=== PATIENT | male | born 1985 | race Caucasian/White ===

== ENCOUNTER 2017-07-05 09:27 | Emergency (ER) | payer BC ==
[~2017-07-05] VITALS: Ht 177.8 cm; Wt 83.9 kg
--- OUTSIDE RECORDS SUMMARY | 2017-07-05 09:29 | XMS REPORT | Clinical Summary ---
Author Author [facility] Organization [facility] Address Unknown Phone Unavailable Care Team Providers Care Automobile Club Travel Counselor Name Role Phone Ricardo Sanchez MD PCP Allergies No Known Allergies Current Medications Prescription Sig. Disp. Refills Start End Date Status Date amphetamine-dextroampheta Take 20 mg by mouth. Active mine XR (ADDERALL XR) 20 MG 24 hr capsule amphetamine-dextroampheta TAKE ONE (1) CAPSULE(S) 0 03/05/20 Active mine XR (ADDERALL XR) 30 BY MOUTH EVERY MORNING. 17 MG 24 hr capsule SULFAMETHOXAZOLE/TRIMETHO Take by mouth. Active PRIM (BACTRIM ORAL) sildenafil (VIAGRA) 50 MG Take 1 tablet (50 mg 10 tablet 0 03/30/20 Active tablet total) by mouth daily as 17 needed for erectile dysfunction. 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 Pulse 97 03/30/2017 9:38 AM GEAR TOOTH LAPPING MACHINE OPERATOR Temperature - - Respiratory Rate - - Oxygen Saturation - - Inhaled Oxygen - - Concentration Weight 87.5 kg (193 lb) 03/30/2017 9:38 AM GEAR 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
[2017-07-05] MEDS ORDERED: CEFTRIAXONE SOD 1 GM VIAL IM ONE (09:45)
[2017-07-05] MEDS ORDERED: AZITHROMYCIN 250 MG TAB PO ONE (09:45)
[2017-07-05 10:35] VITALS: BP 117/79
== END 2017-07-05 10:49 | disposition home or self-care (01) ==
LOC: ER 09:27
DX: R50.9 Fever, unspecified (principal); R05 Cough; J02.9 Acute pharyngitis, unspecified
CPT/HCPCS: 96372; 99283; J0696

== ENCOUNTER 2017-07-12 09:11 | Inpatient (IN) | payer BC ==
[~2017-07-12] VITALS: Ht 177.8 cm; Wt 87.6 kg
--- OUTSIDE RECORDS SUMMARY | 2017-07-12 09:14 | XMS REPORT | Clinical Summary ---
Author Author [facility] Address Unknown Phone Unavailable Care Team Providers Care Stockbroking Dealer Name Role Phone Ricardo Sanchez MD PCP [...] MD Drug-induced erectile dysfunction (Primary Dx) after 07/11/2016 Family History Relation Name Status Comments Father Alive Mother Alive Social History Tobacco Use Types Packs/Day Years Used Date Never Smoker Smokeless Tobacco: Never Used Alcohol Use Drinks/Week oz/Week Comments Yes Sex Assigned at Date Recorded Not on file Last Filed Vital Signs Vital Sign Reading Time Taken Blood Pressure 142/87 03/30/2017 9:38 AM DRYER FEEDER Pulse 97 03/30/2017 9:38 AM DRYER FEEDER Temperature - - Respiratory Rate - - Oxygen Saturation - - Inhaled Oxygen - - Concentration Weight 87.5 kg (193 lb) 03/30/2017 9:38 AM DRYER FEEDER Height 175.3 cm (5' 9") 03/30/2017 9:38 AM DRYER FEEDER Body Mass Index 28.5 03/30/2017 9:38 AM DRYER FEEDER Plan of Treatment Health Maintenance Due Date Last Done Comments INFLUENZA VACCINE 11/28/2016 Results Not on fileafter 07/11/2016 Insurance Payer Benefit Subscriber ID Type Phone Address Plan / Group BCBS BCBS xxxxxxxxxxxx PPO MEREDITH PPO/GIORGIO REDDY PPO
--- OUTSIDE RECORDS SUMMARY | 2017-07-12 09:14 | XMS REPORT | Continuity of Care Document ---
Author Author [facility] Organization [facility] Address [address] [place] [address] Phone Unavailable Care Team Providers Care Roving Inspector Name Role Phone ANIYAH MYERS DO PCP Insurance Providers Guarantor Saleem Dejesus Address [address] [place] [address] [facility] Policy Number [id number] Subscriber's Name Saleem Dejesus Relationship 18 Self / Same As Patient Group Number [id number] Group Name [facility] Effective Date 17 Advance Directives Directive Response Recorded Date/Time Does the patient have an advance directive? No 10/11/12 1:54pm If yes, [facility]? No 10/11/12 1:54pm If not on file with [facility] will patient provide a copy? No 10/11/12 1:54pm Do you have a Directive to Physician? No 07/05/17 10:00am Do you have a Medical Power of Surgical Assistant Certified? No 07/05/17 10:00am Do you have an out of hospital Do Not Resuscitate Order? No 07/05/17 10:00am Do you have any special needs we should be aware of? No 07/05/17 10:00am Do you have a support person here with you today? No 07/05/17 10:00am Did patient receive Notice of Privacy Practices? Yes 07/05/17 10:00am Did patient receive patient rights and responsibilities? Yes 07/05/17 10:00am Problems No problem information available. Medications No medication information available. Social History No social history information available. Hospital Discharge Instructions No hospital discharge instruction information available. Plan of Care Discharge Date 07/05/17 10:49am Disposition HOME, SELF-CARE Condition at Discharge Stable Instructions/Education Provided Fever - Adult Viral Syndrome - Adult Forms Provided Work/School Excuse Prescriptions See Medication Section Referrals ANIYAH MYERS DO Address: [address] [place] [id number] Additional Instructions/Education Your diagnosis today is Acute Viral Pharyngitis and Acute Fever. Start Zithromax tomorrow 07/06/17, start taking Tamiflu today. Take medications as instructed. Alternate Tylenol or Motrin for fever, temperature greater than 100.4 degress orally. Take according to label instructions. Drink plenty of fluids. Do not smoke. No alcohol. Off work 2 days. Follow up with your doctor in 2 days. Call for next available appointment. Return to ER for any worsening symptoms or concerns. Functional Status No functional status information available. Allergies, Adverse Reactions, Alerts No known allergies. Immunizations No immunization information available. Vital Signs Acute Vital Signs Vital Response Date/Time Height 5 ft 10 in 07/05/2017 9:30am Weight 185 lb 07/05/2017 9:30am Body Mass Index 26.5 kg/m^2 07/05/2017 9:30am Results No relevant diagnostic test, laboratory data and/or discharge summary information available. Procedures No procedure information available. Encounters Encounter Location Arrival/Admit Date Discharge/Depart Date Attending Provider Departed Emergency Room [facility] 07/05/17 9:27am 10:49am CAPRICE WAGNER
[2017-07-12] MEDS ORDERED: SODIUM CHLORIDE 0.9% 1000ML 1,000 ML IV STA ×2 (09:20)
[2017-07-12] MEDS ORDERED: ONDANSETRON HCL INJ 2 MG/ML VIAL IV STA (09:20)
[2017-07-12] MEDS ORDERED: AZITHROMYCIN 500MG/NS 250 ML 250 ML IV STA (09:20)
[2017-07-12] MEDS ORDERED: MORPHINE SULFATE 2 MG/ML SYR IV STA (09:20)
[2017-07-12] MEDS ORDERED: CEFTRIAXONE SOD 1 GM VIAL IM ONE (09:30)
[2017-07-12 09:40] LABS: BASOPHILS # (AUTO) 0.1 (0.0-0.1); BASOPHILS % 0.5 % (0.0-1.0); EOSINOPHILS # (AUTO) 0.1 (0.0-0.4); EOSINOPHILS % 0.8 % (0.0-6.0); HEMATOCRIT 35.9 % (38.2-49.6); HEMOGLOBIN 12.2 g/dL (14.0-18.0); LYMPHOCYTES # (AUTO) 1.9 (1.0-3.2); LYMPHOCYTES % 11.4 % (18.0-39.1); MEAN CORPUSCULAR HEMOGLOBIN 27.9 pg (28-32); MEAN CORPUSCULAR VOLUME 82.2 fL (81-99); MONOCYTES # (AUTO) 1.3 (0.2-0.8); MONOCYTES % 8.2 % (4.4-11.3); NEUTROPHILS # (AUTO) 12.7 (2.1-6.9); NEUTROPHILS % 78.3 % (38.7-80.0); PLATELET COUNT 278 x10e3/uL (140-360); RED BLOOD COUNT 4.37 x10e6/uL (4.3-5.7); RED CELL DISTRIBUTION WIDTH 13.6 % (11.7-14.4)
[2017-07-12 09:49] LABS: INR 1.33; PROTHROMBIN TIME 15.5 seconds (11.9-14.5)
[2017-07-12 09:50] LABS: PARTIAL THROMBOPLASTIN TIME 31.8 seconds (23.8-35.5)
[2017-07-12 10:00] LABS: ALANINE AMINOTRANSFERASE 133 IU/L (0-55); ALBUMIN 3.5 g/dL (3.5-5.0); ALBUMIN/GLOBULIN RATIO 0.9 (0.8-2.0); ALKALINE PHOSPHATASE 166 IU/L (40-150); ANION GAP 12.2 mmol/L (8-16); BLOOD UREA NITROGEN 7 mg/dL (7-26); BUN/CREATININE RATIO 9 (6-25); CALCIUM 9.5 mg/dL (8.4-10.2); CARBON DIOXIDE 32 mmol/L (22-29); CHLORIDE 95 mmol/L (98-107); CREATINE KINASE 119 IU/L (30-200); EST GLOMERULAR FILTRATION RATE > 60 ML/MIN (60-); GLUCOSE 139 mg/dL (74-118); LIPASE 11 U/L (8-78); MAGNESIUM 1.6 MG/DL (1.3-2.1); POTASSIUM 4.2 mmol/L (3.5-5.1); SODIUM 135 mmol/L (136-145)
--- NOTE | 2017-07-12 10:43 | Diagnostic Imaging Report ---
PROCEDURE:CHEST SINGLE (PORTABLE) TECHNIQUE:Portable AP chest INDICATION:Chest pain; flu COMPARISON:None. FINDINGS: Low lung volume. Lungs otherwise clear. No pleural effusions. Normal cardiac mediastinal silhouette for technique. Index skeleton. Study limited by portable technique and low inspiration. CONCLUSION: Limited study without acute abnormality. Dictated by: Yuri Forde M.D. on 07/12/2017 at 10:42 Electronically approved by: Yuri Forde M.D. on 07/12/2017 at 10:42
[2017-07-12 10:46] LABS: BILIRUBIN,URINE NEGATIVE (NEGATIVE); KETONES,URINE NEGATIVE (NEGATIVE); LEUKOCYTE ESTERASE ,URINE NEGATIVE (NEGATIVE); NITRITE,URINE NEGATIVE (NEGATIVE); PROTEIN,URINE DIPSTICK NEGATIVE (NEGATIVE); URINE UROBILINOGEN 0.2 mg/dL (0.2 - 1)
[2017-07-12 10:53] LABS: CLARITY,URINE CLEAR (CLEAR); COLOR,URINE YELLOW (YELLOW)
[2017-07-12] MEDS: CEFTRIAXONE SOD 1 GM VIAL IV SCH ×2 (10:59→23:25)
[2017-07-12 11:00] LABS: BACTERIA,URINE FEW /HPF; EPITHELIAL CELLS,URINE FEW /LPF; RBC,URINE 0-5 /HPF (0-5); WBC,URINE (MAN) 0-5 /HPF (0-5)
[2017-07-12] MEDS ORDERED: SODIUM CHLORIDE 0.9% 1000ML 1,000 ML IV SCH (11:00)
[2017-07-12] MEDS ORDERED: ALBUTEROL SULF 0.083% NEB SOLN 3 ML NEB NEB SCH (11:00)
[2017-07-12] MEDS ORDERED: ONDANSETRON HCL INJ 2 MG/ML VIAL IV PRN (11:00)
[2017-07-12] MEDS ORDERED: ASPIRIN 81 MG CHEW TAB PO ONE (11:00)
[2017-07-12] MEDS ORDERED: ACETAMINOPHEN 325 MG TAB PO PRN (11:00)
[2017-07-12] MEDS ORDERED: MORPHINE SULFATE 2 MG/ML SYR IV PRN (11:00)
[2017-07-12] MEDS ORDERED: AZITHROMYCIN 500MG/SOD CHL 0.9% 250ML BAG IV SCH (11:00)
[2017-07-12] MEDS ORDERED: ACETAMINOPHEN 325 MG TAB PO ONE (11:45)
[2017-07-12] MEDS ORDERED: IPRATROPIUM BROMIDE 0.02% 2.5 ML NEB NEB SCH (12:00)
[2017-07-12] MEDS ORDERED: AZITHROMYCIN 500MG/NS 250 ML 250 ML IV SCH (12:00)
--- OUTSIDE RECORDS SUMMARY | 2017-07-12 12:06 | XMS REPORT | Clinical Summary ---
Author Author [facility] Address Unknown Phone Unavailable Care Team Providers Care Senior Librarian Name Role Phone Ricardo Sanchez MD PCP [...] Taken Blood Pressure 142/87 03/30/2017 9:38 AM COMMODITY SUPERVISOR Pulse 97 03/30/2017 9:38 AM COMMODITY SUPERVISOR Temperature - - Respiratory Rate - - Oxygen Saturation - - Inhaled Oxygen - - Concentration Weight 87.5 kg (193 lb) 03/30/2017 9:38 AM COMMODITY SUPERVISOR Height 175.3 cm (5' 9") 03/30/2017 9:38 AM COMMODITY SUPERVISOR Body Mass Index 28.5 03/30/2017 9:38 AM COMMODITY SUPERVISOR Plan of Treatment Health Maintenance Due Date Last Done Comments INFLUENZA VACCINE 11/28/2016 Results Not on fileafter 07/11/2016 Insurance Payer Benefit Subscriber ID Type Phone Address Plan / Group BCBS BCBS xxxxxxxxxxxx PPO MEREDITH PPO/GIORGIO REDDY PPO
--- OUTSIDE RECORDS SUMMARY | 2017-07-12 12:06 | XMS REPORT ---
Author [facility] Address Unknown Phone Unavailable Care Team Providers Care Speech/Language Therapist Name Role Phone CAPRICE WAGNER Unavailable Unavailable Problems This patient has no known problems. Allergies, Adverse Reactions, Alerts This patient has no known allergies or adverse reactions. Medications This patient has no known medications. Results Test Description Test Time Test Comments Text Results Atomic Results Result Comments CHEST SINGLE (PORTABLE) [place] [address] Patient Name: SALEEM DEJESUS MR #: [id number] : 1985 Age/Sex: 31/M Req #: [id number] Adm Physician: Ordered by: CAPRICE WAGNER MD, MD Report #: [id number] Location: ER Room/Bed: Procedure: [id number] DX/CHEST SINGLE (PORTABLE) Exam Date: 07/12/17 Exam Time: 1030 REPORT STATUS: Signed PROCEDURE: CHEST SINGLE (PORTABLE) TECHNIQUE: Portable AP chest INDICATION: Chest pain; flu COMPARISON: None. FINDINGS: Low lung volume. Lungs otherwise clear. No pleural effusions. Normal cardiac mediastinal silhouette for technique. Index skeleton. Study limited by portable technique and low inspiration. CONCLUSION: Limited study without acute abnormality. Dictated by: Jeanine Forde M.D. on 07/12/2017 at 10:42 Electronically approved by: Jeanine Forde M.D. on 07/12/2017 at 10: 42 Dictated By: JEANINE FORDE MD [id number] Transcribed By: PATRICIO on 07/12/17 1042 COPY TO: CAPRICE WAGNER
--- NOTE | 2017-07-12 12:32 | Diagnostic Imaging Report ---
PROCEDURE: CT scan of the chest WITH intravenous contrast, using PE protocol. TECHNIQUE: The chest was scanned utilizing a multidetector helical scanner from the lung apex through the level of the adrenal glands after the IV administration of 60 cc of Isovue 370. Coronal and sagittal multiplanar reformations were obtained. DLP: 457.28 mGy*cm COMPARISON: None. INDICATIONS: Chest tightness and fever FINDINGS: Lines/tubes: None. Lungs and Airways: No evidence of pulmonary embolus to the subsegmental level. Groundglass opacities in both lower lobes likely secondary to atelectasis versus edema. Pleura: Small bilateral pleural effusions. Heart and mediastinum: There is a small-moderate pericardial effusion. The density of the effusion is slightly higher than water suggesting blood. The thyroid gland is normal. No significant mediastinal, hilar or axillary lymphadenopathy is seen. The heart is within normal limits. Soft tissues: Normal. Abdomen: Limited contrast-enhanced views of the upper abdomen show no abnormality within the visualized liver, spleen, pancreas, or kidneys. Small splenule adjacent to the medial aspect of the spleen. The adrenal glands are normal. Bones: The visualized bony thorax is within normal limits. IMPRESSION: 1. No evidence of pulmonary emboli. 2. Small-moderate pericardial effusion. 3. Bibasilar groundglass opacities. 4. Small bilateral pleural effusions. Alvarado Bauer D.O. Dictated by: Alvarado Bauer D.O. on 07/12/2017 at 12:31 Electronically approved by: Alvarado Bauer D.O. on 07/12/2017 at 12:31
[2017-07-12 13:20] VITALS: BP 116/63
[2017-07-12] MEDS ORDERED: SODIUM CHLORIDE 0.9% 50ML 50 ML ONE ×2 (13:51→23:18)
[2017-07-12] MEDS ORDERED: IOPAMIDOL 370 MG/ML 200 ML INFUS..BTL INJ ONE (13:51)
[2017-07-12] MEDS: SODIUM CHLORIDE 0.9% 1000ML 1,000 ML IV SCH ×2 (13:59→18:46)
[2017-07-12] MEDS: FAMOTIDINE 20 MG/2 ML VIAL IV SCH (16:17)
[2017-07-12] MEDS: INDOMETHACIN 25 MG CAP PO SCH ×2 (16:17→21:46)
[2017-07-12 16:59] VITALS: BP 115/73
--- NOTE | 2017-07-12 18:45 | Consultation ---
DATE OF CONSULTATION: July 12, 2017 REQUESTING PHYSICIAN: Dr. Shin Canela. REASON FOR CONSULTATION: Chest pain. HISTORY OF PRESENT ILLNESS: This is a 31-year-old man without significant past medical history who presents with complaints of chest pain and body aches. The patient reports that he began having body aches and chest pain last Sunday. This was associated with fevers. However, he denied any chills or sick contacts. The chest pain was described as a pressure 6-7/10 in severity. He saw his primary care physician the following Sunday because he then proceeded to develop generalized pain and shortness of breath. He was given Tamiflu and antibiotics. He felt slightly better with these therapies. However, yesterday he began to have body aches, fevers and chest discomfort again. He reports the chest discomfort is worse with inspiration and with laying down. The pain has been constant since onset. REVIEW OF SYSTEMS: Negative except as per HPI. PAST MEDICAL HISTORY: Denies. PAST SURGICAL HISTORY: None. ALLERGIES: NO KNOWN DRUG ALLERGIES. MEDICATIONS: Please see EMR. SOCIAL HISTORY: Denies tobacco or illicit drugs. He drinks alcohol occasionally. FAMILY HISTORY: Noncontributory. PHYSICAL EXAMINATION VITAL SIGNS: Temperature 98 degrees, pulse 109, respiratory rate 18, blood pressure 116/63, oxygen saturation 97% on room air. GENERAL: A well-nourished, well-developed man in no acute distress. HEENT: Normocephalic, atraumatic. Pupils are equal. No scleral icterus. NECK: Supple. No thyromegaly or cervical lymphadenopathy. No carotid bruits. LUNGS: Clear to auscultation bilaterally. No wheezes or crackles. CARDIOVASCULAR: Tachycardiac but regular, no murmur. Normal S1 and S2. ABDOMEN: Soft and nontender. EXTREMITIES: No edema. NEUROLOGIC: Nonfocal exam. LABORATORY DATA: WBC 16.26, hemoglobin 12.2, hematocrit 35.9, platelets 278,000, sodium 135, potassium 4.2, chloride 95, CO2 of 32. BUN 7, creatinine 0.8. Troponin 0.017. BNP 114.5. INR 1.33. CT chest no evidence of pulmonary emboli, small to moderate pericardial effusion, bibasilar ground-glass opacities, small bilateral pleural effusions. Chest x-ray: Limited study without acute abnormalities. Blood and urine cultures pending. Influenza A and B negative. IMPRESSION 1. Chest pain. 2. Generalized body aches. 3. Leukocytosis. 4. Mild to moderate pericardial effusion. 5. Tachycardia. PLAN: The patient's chest pain is unlikely to be of coronary artery etiology. Given mild to moderate pericardial effusion, suspect pericarditis. Blood and urine cultures have been sent and are pending. The patient has been started on antibiotics. Echocardiogram has been done. We will review the images. Will check CRP. Agree with indomethacin 50 mg p.o. t.i.d. Start colchicine 0.6 mg p.o. b.i.d. as well for presumed pericarditis. Trend cardiac enzymes. Antibiotics per primary service. Thank you for this consult. We will continue to follow. Job#: [id number]
[2017-07-12 19:44] LABS: CREATINE KINASE MB 1.5 ng/mL (0-5.0)
[2017-07-12 19:55] VITALS: BP 119/56
[2017-07-12] MEDS ORDERED: ASPIRIN 81 MG CHEW TAB ONE (21:44)
[2017-07-12] MEDS ORDERED: SODIUM CHLORIDE 0.9% 250ML 250 ML ONE (23:17)
[2017-07-13] VITALS: BP 119/56
[2017-07-13 00:18] VITALS: BP 118/59
[2017-07-13 03:14] LABS: CREATINE KINASE MB 1.7 ng/mL (0-5.0)
[2017-07-13] MEDS: IPRATROPIUM BROMIDE 0.02% 2.5 ML NEB NEB SCH ×3 (03:25→19:23)
[2017-07-13] MEDS: ALBUTEROL SULF 0.083% NEB SOLN 3 ML NEB NEB SCH ×6 (03:25→23:35)
[2017-07-13 04:38] VITALS: BP 124/63
[2017-07-13] MEDS: SODIUM CHLORIDE 0.9% 1000ML 1,000 ML IV SCH ×2 (04:44→14:44)
[2017-07-13 06:09] LABS: BASOPHILS # (AUTO) 0.1 (0.0-0.1); BASOPHILS % 0.5 % (0.0-1.0); EOSINOPHILS # (AUTO) 0.2 (0.0-0.4); EOSINOPHILS % 2.6 % (0.0-6.0); HEMATOCRIT 31.3 % (38.2-49.6); HEMOGLOBIN 10.3 g/dL (14.0-18.0); LYMPHOCYTES % 21.4 % (18.0-39.1); MEAN CORPUSCULAR HEMOGLOBIN 27.7 pg (28-32); MEAN CORPUSCULAR HGB CONC 32.9 g/dL (31-35); MEAN CORPUSCULAR VOLUME 84.1 fL (81-99); MONOCYTES # (AUTO) 0.8 (0.2-0.8); MONOCYTES % 8.3 % (4.4-11.3); NEUTROPHILS # (AUTO) 6.1 (2.1-6.9); NEUTROPHILS % 66.3 % (38.7-80.0); PLATELET COUNT 211 x10e3/uL (140-360); RED BLOOD COUNT 3.72 x10e6/uL (4.3-5.7); RED CELL DISTRIBUTION WIDTH 13.6 % (11.7-14.4)
--- NOTE | 2017-07-13 06:26 | Diagnostic Imaging Report ---
CHEST SINGLE (PORTABLE), 07/13/2017 5:00 AM Technique: CHEST SINGLE (PORTABLE) Comparison: 07/12/2017 Clinical history: Pneumonia Findings: See Impression Impression: Limited portable technique 1. Stable mildly enlarged cardiac silhouette. 2. Low lung volumes with small effusions and bibasilar atelectasis or consolidation. Signed by: Dr Juana Muro MD on 07/13/2017 6:23 AM
[2017-07-13 06:43] LABS: ALANINE AMINOTRANSFERASE 89 IU/L (0-55); ALBUMIN 2.8 g/dL (3.5-5.0); ALBUMIN/GLOBULIN RATIO 0.8 (0.8-2.0); ALKALINE PHOSPHATASE 133 IU/L (40-150); ANION GAP 10.3 mmol/L (8-16); BLOOD UREA NITROGEN 9 mg/dL (7-26); BUN/CREATININE RATIO 12 (6-25); CALCIUM 8.9 mg/dL (8.4-10.2); CARBON DIOXIDE 31 mmol/L (22-29); CHLORIDE 102 mmol/L (98-107); CREATININE, SERUM 0.75 mg/dL (0.72-1.25); EST GLOMERULAR FILTRATION RATE > 60 ML/MIN (60-); GLUCOSE 123 mg/dL (74-118); POTASSIUM 4.3 mmol/L (3.5-5.1); SODIUM 139 mmol/L (136-145)
[2017-07-13 07:47] VITALS: BP 109/75
[2017-07-13] MEDS: AZITHROMYCIN 500MG/NS 250 ML 250 ML IV SCH (08:54)
[2017-07-13] MEDS: FAMOTIDINE 20 MG/2 ML VIAL IV SCH (08:54)
[2017-07-13] MEDS: INDOMETHACIN 25 MG CAP PO SCH ×3 (08:55→22:35)
[2017-07-13] MEDS: COLCHICINE 0.6 MG TAB PO SCH ×2 (08:55→16:29)
[2017-07-13] MEDS: CEFTRIAXONE SOD 1 GM VIAL IV SCH ×2 (12:20→22:35)
--- NOTE | 2017-07-13 13:56 | Progress Note ---
DATE: July 13, 2017 CARDIOLOGY PROGRESS NOTE SUBJECTIVE: Patient continues to have chest pain with deep inspiration. However, he reports it is less severe now, only 2 out of 10 from 7 out of 10 in severity. He denies shortness of breath. OBJECTIVE VITAL SIGNS: Temperature 97.9 degrees, pulse 92, respiratory rate 20, blood pressure 109/75, oxygen saturation 97% on room air. GENERAL: Awake, alert, in no acute distress. LUNGS: Clear to auscultation bilaterally. No wheezes or crackles. CARDIOVASCULAR: Normal rate, regular rhythm. No murmur. Normal S1 and S2. ABDOMEN: Soft, nontender. EXTREMITIES: No edema. CARDIAC MEDICATIONS 1. Colchicine 0.6 mg p.o. b.i.d. 2. Indomethacin 50 mg p.o. t.i.d. LABS: WBC 9.18, hemoglobin 10.3, hematocrit 31.3, platelets 211. CRP 191.7. Troponin 0.006. Sodium 139, potassium 4.3, chloride 102, CO2 31, BUN 9, creatinine 0.75. TELEMETRY: Normal sinus rhythm. IMPRESSION 1. Chest pain, likely viral pericarditis. 2. Mild to moderate pericardial effusion. 3. Sinus tachycardia, resolved. RECOMMENDATIONS: Given the presence of pericardial effusion and chest pain, likely patient has viral pericarditis given presenting symptoms. Cultures are pending but without growth thus far. CRP was quite elevated. Patient's symptoms are improving with indomethacin and colchicine. We will continue. Discussed need for followup as an outpatient for taper of indomethacin, discussed activity restrictions with the patient, who agrees. Antibiotics per primary service. Thank you for this consult. We will continue to follow. Job#: [id number] EV
[2017-07-13 16:00] VITALS: BP 138/64
[2017-07-13] MEDS: FAMOTIDINE 10MG/ML 20ML VIAL IV SCH (18:38)
[2017-07-13 20:00] VITALS: BP 132/77
[2017-07-14] VITALS: BP 124/60
[2017-07-14] MEDS: SODIUM CHLORIDE 0.9% 1000ML 1,000 ML IV SCH ×3 (00:44→20:44)
[2017-07-14] MEDS: IPRATROPIUM BROMIDE 0.02% 2.5 ML NEB NEB SCH ×4 (02:35→19:20)
[2017-07-14] MEDS: ALBUTEROL SULF 0.083% NEB SOLN 3 ML NEB NEB SCH ×6 (02:35→23:40)
[2017-07-14 04:00] VITALS: BP 96/51
[2017-07-14 08:00] VITALS: BP 108/62
[2017-07-14] MEDS: INDOMETHACIN 25 MG CAP PO SCH ×3 (08:44→21:10)
[2017-07-14] MEDS: FAMOTIDINE 10MG/ML 20ML VIAL IV SCH ×2 (08:44→18:50)
[2017-07-14] MEDS: AZITHROMYCIN 500MG/NS 250 ML 250 ML IV SCH (08:44)
[2017-07-14] MEDS: COLCHICINE 0.6 MG TAB PO SCH ×2 (08:44→18:50)
[2017-07-14 09:59] LABS: BASOPHILS % 0.5 % (0.0-1.0); EOSINOPHILS # (AUTO) 0.2 (0.0-0.4); EOSINOPHILS % 1.9 % (0.0-6.0); HEMATOCRIT 29.8 % (38.2-49.6); HEMOGLOBIN 9.9 g/dL (14.0-18.0); LYMPHOCYTES # (AUTO) 1.2 (1.0-3.2); LYMPHOCYTES % 15.1 % (18.0-39.1); MEAN CORPUSCULAR HEMOGLOBIN 27.8 pg (28-32); MEAN CORPUSCULAR HGB CONC 33.2 g/dL (31-35); MEAN CORPUSCULAR VOLUME 83.7 fL (81-99); MONOCYTES # (AUTO) 0.5 (0.2-0.8); MONOCYTES % 6.1 % (4.4-11.3); NEUTROPHILS # (AUTO) 6.2 (2.1-6.9); NEUTROPHILS % 75.7 % (38.7-80.0); PLATELET COUNT 220 x10e3/uL (140-360); RED BLOOD COUNT 3.56 x10e6/uL (4.3-5.7); RED CELL DISTRIBUTION WIDTH 13.7 % (11.7-14.4)
[2017-07-14 10:18] LABS: ALANINE AMINOTRANSFERASE 75 IU/L (0-55); ALBUMIN 2.6 g/dL (3.5-5.0); ALBUMIN/GLOBULIN RATIO 0.7 (0.8-2.0); ALKALINE PHOSPHATASE 145 IU/L (40-150); ANION GAP 9.8 mmol/L (8-16); BLOOD UREA NITROGEN 10 mg/dL (7-26); BUN/CREATININE RATIO 13 (6-25); CALCIUM 9.3 mg/dL (8.4-10.2); CARBON DIOXIDE 30 mmol/L (22-29); CHLORIDE 100 mmol/L (98-107); CREATINE KINASE 54 IU/L (30-200); CREATININE, SERUM 0.75 mg/dL (0.72-1.25); EST GLOMERULAR FILTRATION RATE > 60 ML/MIN (60-); GLUCOSE 122 mg/dL (74-118); POTASSIUM 3.8 mmol/L (3.5-5.1); SODIUM 136 mmol/L (136-145)
[2017-07-14 12:00] VITALS: BP 127/61
--- NOTE | 2017-07-14 12:59 | Progress Note ---
DATE: July 14, 2017 CARDIOLOGY PROGRESS NOTE SUBJECTIVE: The patient reports his chest pain is now further on his left side. Character is still unchanged and worse with inspiration. He denies any shortness of breath. OBJECTIVE VITALS: Temperature 97.5 degrees, pulse 99, respiratory rate 18, blood pressure 108/62, oxygen saturation 95% on room air. GENERAL: Awake, alert and in no acute distress. LUNGS: Clear to auscultation bilaterally. No wheezes or crackles. CARDIOVASCULAR: Normal rate and regular rhythm. No murmur. Normal S1 and S2. No pericardial rub. ABDOMEN: Soft and nontender. EXTREMITIES: No edema. CARDIAC MEDICATIONS 1. Colchicine 0.6 mg p.o. b.i.d. 2. Indomethacin 50 mg p.o. t.i.d. LABS: WBC 8.22, hemoglobin 9.9, hematocrit 29.8, and platelets 220,000. Sodium 136, potassium 3.8, chloride 100, CO2 30, BUN 10, creatinine 0.75. Telemetry is normal sinus rhythm. IMPRESSION 1. Chest pain, likely viral pericarditis. 2. Mild to moderate pericardial effusion. 3. Sinus tachycardia, resolved. RECOMMENDATIONS: Given presence of pericardial effusion and chest pain, as well as presenting symptoms, the patient likely has viral pericarditis. Cultures are pending, but are without growth thus far. CRP was significantly elevated on admission. Continue indomethacin and colchicine. The patient will need outpatient taper of his indomethacin, as well as repeat echocardiogram. Activity restrictions. No alcohol or strenuous activity. Advice per primary service. Thank you for this consult. Will continue to follow. Job#: [id number] TIAN
[2017-07-14] MEDS: CEFTRIAXONE SOD 1 GM VIAL IV SCH ×2 (13:18→21:00)
[2017-07-14 16:00] VITALS: BP 125/65
[2017-07-14 20:00] VITALS: BP 135/70
[2017-07-15] VITALS: BP 132/72
[2017-07-15] MEDS: ALBUTEROL SULF 0.083% NEB SOLN 3 ML NEB NEB SCH ×2 (03:20→07:13)
[2017-07-15] MEDS: IPRATROPIUM BROMIDE 0.02% 2.5 ML NEB NEB SCH ×2 (03:20→07:13)
[2017-07-15 04:00] VITALS: BP 109/55
[2017-07-15] MEDS: SODIUM CHLORIDE 0.9% 1000ML 1,000 ML IV SCH (06:44)
[2017-07-15] MEDS: FAMOTIDINE 10MG/ML 20ML VIAL IV SCH (08:36)
[2017-07-15] MEDS: COLCHICINE 0.6 MG TAB PO SCH (08:36)
[2017-07-15] MEDS: INDOMETHACIN 25 MG CAP PO SCH (08:36)
[2017-07-15] MEDS: AZITHROMYCIN 500MG/NS 250 ML 250 ML IV SCH (08:36)
[2017-07-15 10:43] VITALS: BP 124/67
[2017-07-15] MEDS: CEFTRIAXONE SOD 1 GM VIAL IV SCH (11:13)
--- NOTE | 2017-07-15 12:35 | Progress Note ---
DATE: July 15, 2017 CARDIOLOGY PROGRESS NOTE SUBJECTIVE: The patient denies shortness of breath. His chest pain has resolved. OBJECTIVE VITALS: Temperature 97 degrees, pulse 125, respiratory rate 25, blood pressure 124/67, oxygen saturation 97% on room air. GENERAL: Awake, alert and in no acute distress. LUNGS: Clear to auscultation bilaterally. No wheezes or crackles. CARDIOVASCULAR: Normal rate. Regular rhythm. No murmur. Normal S1 and S2. No pericardial rub. ABDOMEN: Soft and nontender. EXTREMITIES: No edema. CARDIAC MEDICATIONS 1. Colchicine 0.6 mg p.o. b.i.d. 2. Indomethacin 50 mg p.o. t.i.d. 3. Famotidine 20 mg IV b.i.d. LABS: None today. CRP is pending. Telemetry is sinus tachycardia and normal sinus rhythm. IMPRESSION 1. Chest pain, likely viral pericarditis. 2. Mild to moderate pericardial effusion. 3. Sinus tachycardia. RECOMMENDATIONS: Given the presence of pericardial effusion and chest pain, as well as presenting symptoms, the patient likely has viral pericarditis. Cultures have not demonstrated any growth thus far. CRP was significantly elevated on admission. Repeat CRP is pending. Continue indomethacin and colchicine. He will need outpatient taper of his indomethacin and repeat echocardiogram. Activity restrictions were discussed with the patient. Antibiotics per primary service. Thank you for this consult. We will continue to follow. Job#: [id number] TIAN
[2017-07-15] MEDS ORDERED: COLCRYS0.6 MG PO (13:08)
[2017-07-15] MEDS ORDERED: INDOMETHACIN50 MG PO (13:08)
== END 2017-07-15 13:30 | disposition home or self-care (01) | DRG 316 ==
LOC: ER 09:11 → ERHOLD 12:02 → MED/SURG2 12:06
DX: I30.1 Infective pericarditis (principal); B97.89 Other viral agents as the cause of diseases classified elsewhere; D64.9 Anemia, unspecified; J06.9 Acute upper respiratory infection, unspecified; L70.0 Acne vulgaris; D72.829 Elevated white blood cell count, unspecified; R00.0 Tachycardia, unspecified
CPT/HCPCS: 36415; 71045; 71260; 80053; 81001; 82550; 82553; 83690; 83735; 83880; 84484; 85025; 85610; 85730; 86140; 87040; 87086; 87400; 93005; 93306; 94640; 96372; J0456; J0696; J7030; J7050; Q9967

== ENCOUNTER 2017-07-21 15:54 | Inpatient (IN) | payer BC ==
[~2017-07-21] VITALS: Ht 177.8 cm; Wt 83.9 kg
[~2017-07-21 15:54] MED LIST: COLCRYS0.6 MG PO; INDOMETHACIN50 MG PO
--- OUTSIDE RECORDS SUMMARY | 2017-07-21 15:57 | XMS REPORT | Clinical Summary ---
Author Author [facility] Address Unknown Phone Unavailable Care Team Providers Care Gambling Floor Supervisor Name Role Phone Ricardo Sanchez MD PCP [...] MD Drug-induced erectile dysfunction (Primary Dx) after 2016 Family History Relation Name Status Comments Father Alive Mother Alive Social History Tobacco Use Types Packs/Day Years Used Date Never Smoker Smokeless Tobacco: Never Used Alcohol Use Drinks/Week oz/Week Comments Yes Sex Assigned at Date Recorded Not on file Last Filed Vital Signs Vital Sign Reading Time Taken Blood Pressure 142/87 03/30/2017 9:38 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 Pulse 97 03/30/2017 9:38 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 Temperature - - Respiratory Rate - - Oxygen Saturation - - Inhaled Oxygen - - Concentration Weight 87.5 kg (193 lb) 03/30/2017 9:38 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 Height 175.3 cm (5' 9") 03/30/2017 9:38 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 Body Mass Index 28.5 03/30/2017 9:38 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 Plan of Treatment Health Maintenance Due Date Last Done Comments INFLUENZA VACCINE 11/28/2016 Results Not on fileafter 2016 Insurance Payer Benefit Subscriber ID Type Phone Address Plan / Group BCBS BCBS xxxxxxxxxxxx PPO MEREDITH PPO/GIORGIO REDDY PPO
--- OUTSIDE RECORDS SUMMARY | 2017-07-21 15:57 | XMS REPORT | Continuity of Care Document ---
Author Author [facility] Organization [facility] Address [address] [place] [address] Phone Unavailable Care Team Providers Care Communications Agent Name Role Phone ANTONIO MYERS DO PCP Insurance Providers Guarantor Saleem Dejesus Address [address] [place] [address] Email PT DECLINED [facility] Policy Number [id number] Subscriber's Name Saleem Dejesus Relationship 18 Self / Same As Patient Group Number [id number] Group Name [facility] Effective Date 17 Advance Directives Directive Response Recorded Date/Time Does the patient have an advance directive? No 07/12/17 1:20pm If yes, is advance directive on file with [facility]? No 07/12/17 1:20pm If not on file with [facility] will patient provide a copy? No 07/12/17 1:20pm Do you have a Directive to Physician? No 07/12/17 11:35am Do you have a Medical Power of Pie Crust Mixer? No 07/12/17 11:35am Do you have an out of hospital Do Not Resuscitate Order? No 07/12/17 11:35am Do you have any special needs we should be aware of? No 07/12/17 11:35am Do you have a support person here with you today? No 07/12/17 11:35am Did patient receive Notice of Privacy Practices? Yes 07/12/17 11:35am Did patient receive patient rights and responsibilities? Yes 07/12/17 11:35am Problems Medical Problem Onset Date Status Chest pain Unknown Fever Unknown Pleuritic pain Unknown Pneumonia Unknown Medications Current Home Medications Medication Dose Units Route Directions Days Qty Instructions Start Date Colchicine (Colcrys) 0.6 Mg Tablet 0.6 Mg Oral Daily 30 Tab Indomethacin 50 Mg Capsule Social History Social History Problem Response Recorded Date/Time Onset Date Status Hx Psychiatric Problems No 07/12/2017 1:20pm Not Applicable Not Applicable Hx Eating Disorder No 07/12/2017 1:20pm Not Applicable Not Applicable Hx Substance Use Disorder No 07/12/2017 1:20pm Not Applicable Not Applicable Hx Depression No 07/12/2017 1:20pm Not Applicable Not Applicable Hx Alcohol Use No 07/12/2017 1:20pm Not Applicable Not Applicable Hx Substance Use Treatment No 07/12/2017 1:20pm Not Applicable Not Applicable Hx Physical Abuse No 07/12/2017 1:20pm Not Applicable Not Applicable Smoking Status Start Date Stop Date Never Smoker Hospital Discharge Instructions No hospital discharge instruction information available. Plan of Care Discharge Date 07/15/17 1:30pm Disposition HOME, SELF-CARE Instructions/Education Provided Chest Pain - Noncardiac Pneumonia - Bacterial Prescriptions See Medication Section Additional Instructions/Education CONTINUE DIET AND ACTIVITY TOLERATED FOLLOW UP WITH PRIMARY CARE IN 2 WEEKS FOLLOW UP WITH RETICLE PRINTER IN 2 WEEKS Functional Status Query Response Date Recorded Assistive Devices None July 12, 2017 1:20pm Ambulation Ability Independent July 12, 2017 1:20pm Toileting Ability Independent July 13, 2017 5:50pm Allergies, Adverse Reactions, Alerts No known allergies. Immunizations No immunization information available. Vital Signs Acute Vital Signs Vital Response Date/Time Temperature (Fahrenheit) 97.0 degrees F (97.6 - 99.5) 07/15/2017 10:43am Pulse Pulse Rate (adult) 125 bpm (60 - 90) 07/15/2017 10:43am Respiratory Rate 20 bpm (12 - 24) 07/15/2017 10:43am Blood Pressure 124/67 mm Hg 07/15/2017 10:43am Height 5 ft 10 in 07/12/2017 9:16am Weight 193.06 lb 07/14/2017 3:01am Body Mass Index 27.7 kg/m^2 07/14/2017 3:01am Results Laboratory Results Test Name Result Units Flags Reference Collection Date/Time Result Date/ Time Comments White Blood Count 8.22 x10e3/uL 4.8-10.8 07/14/2017 9:40am 07/14/2017 10:00am Red Blood Count 3.56 x10e6/uL L 4.3-5.7 07/14/2017 9:40am 07/14/2017 10: 00am Hemoglobin 9.9 g/dL L 14.0-18.0 07/14/2017 9:40am 07/14/2017 10:00am Hematocrit 29.8 % L 38.2-49.6 07/14/2017 9:40am 07/14/2017 10:00am Mean Corpuscular Volume 83.7 fL 81-99 07/14/2017 9:40am 07/14/2017 10: 00am Mean Corpuscular Hemoglobin 27.8 pg L 28-32 07/14/2017 9:40am 2017 10:00am Mean Corpuscular Hemoglobin Concent 33.2 g/dL 31-35 07/14/2017 9:40am 07/14/2017 10:00am Red Cell Distribution Width 13.7 % 11.7-14.4 07/14/2017 9:40am 2017 10:00am Platelet Count 220 x10e3/uL 140-360 07/14/2017 9:40am 07/14/2017 10: 00am Neutrophils (%) (Auto) 75.7 % 38.7-80.0 07/14/2017 9:40am 07/14/2017 10 :00am Lymphocytes (%) (Auto) 15.1 % L 18.0-39.1 07/14/2017 9:40am 07/14/2017 10:00am Monocytes (%) (Auto) 6.1 % 4.4-11.3 07/14/2017 9:40am 07/14/2017 10: 00am Eosinophils (%) (Auto) 1.9 % 0.0-6.0 07/14/2017 9:40am 07/14/2017 10: 00am Basophils (%) (Auto) 0.5 % 0.0-1.0 07/14/2017 9:40am 07/14/2017 10: 00am IM GRANULOCYTES % 0.7 % 0.0-1.0 07/14/2017 9:40am 07/14/2017 10:00am Neutrophils # (Auto) 6.2 2.1-6.9 07/14/2017 9:40am 07/14/2017 10: 00am Lymphocytes # (Auto) 1.2 1.0-3.2 07/14/2017 9:40am 07/14/2017 10: 00am Monocytes # (Auto) 0.5 0.2-0.8 07/14/2017 9:40am 07/14/2017 10:00am Eosinophils # (Auto) 0.2 0.0-0.4 07/14/2017 9:40am 07/14/2017 10: 00am Basophils # (Auto) 0.0 0.0-0.1 07/14/2017 9:40am 07/14/2017 10:00am Absolute Immature Granulocyte (auto 0.06 x10e3/uL 0-0.1 07/14/2017 9: 40am 07/14/2017 10:00am Prothrombin Time 15.5 seconds H 11.9-14.5 07/12/2017 9:27am 07/12/2017 9 :51am Prothromb Time International Ratio 1.33 07/12/2017 9:27am 2017 9:51am Oral Anticoagulant Therapy INR Values: 1. Low Intensity Therapy 1.5 - 2.0 2. Moderate Intensity Therapy 2.0 - 3.0 3. High Intensity Therapy(1) 2.5 - 3.5 4. High Intensity Therapy(2) 3.0 - 4.0 5. Panic Value INR > 5.0 Activated Partial Thromboplast Time 31.8 seconds 23.8-35.5 07/12/2017 9: 27am 07/12/2017 9:51am Urine Color YELLOW YELLOW 07/12/2017 10:35am 07/12/2017 10:53am Urine Clarity CLEAR CLEAR 07/12/2017 10:35am 07/12/2017 10:53am Urine Specific [place] 1.015 1.010-1.025 07/12/2017 10:35am 2017 10:53am Urine pH 7 5 - 7 07/12/2017 10:35am 07/12/2017 10:53am Urine Leukocyte Esterase NEGATIVE NEGATIVE 07/12/2017 10:35am 2017 10:53am Urine Nitrite NEGATIVE NEGATIVE 07/12/2017 10:35am 07/12/2017 10: 53am Urine Protein NEGATIVE NEGATIVE 07/12/2017 10:35am 07/12/2017 10: 53am Urine Glucose (UA) NEGATIVE NEGATIVE 07/12/2017 10:35am 07/12/2017 10 :53am Urine Ketones NEGATIVE NEGATIVE 07/12/2017 10:35am 07/12/2017 10: 53am Urine Urobilinogen 0.2 mg/dL 0.2 - 1 07/12/2017 10:35am 07/12/2017 10: 53am Urine Bilirubin NEGATIVE NEGATIVE 07/12/2017 10:35am 07/12/2017 10: 53am Urine Blood NEGATIVE NEGATIVE 07/12/2017 10:35am 07/12/2017 10:53am Urine WBC 0-5 /HPF 0-5 07/12/2017 10:35am 07/12/2017 11:00am Urine RBC 0-5 /HPF 0-5 07/12/2017 10:35am 07/12/2017 11:00am Urine Bacteria FEW /HPF NONE 07/12/2017 10:35am 07/12/2017 11:00am Urine Epithelial Cells FEW /LPF NONE 07/12/2017 10:35am 07/12/2017 11: 00am Sodium Level 136 mmol/L 136-145 07/14/2017 9:40am 07/14/2017 10:20am Potassium Level 3.8 mmol/L 3.5-5.1 07/14/2017 9:40am 07/14/2017 10: 20am Chloride Level 100 mmol/L 98-107 07/14/2017 9:40am 07/14/2017 10:20am Influenza Virus Types A,B Antigen NEGATIVE NEGATIVE 07/12/2017 9:27am 07/12/2017 10:03am Carbon Dioxide Level 30 mmol/L H 22-29 07/14/2017 9:40am 07/14/2017 10: 20am Anion Gap 9.8 mmol/L 8-07/14/2017 9:40am 07/14/2017 10:20am Blood Urea Nitrogen 10 mg/dL 7-07/14/2017 9:40am 07/14/2017 10:20am Creatinine 0.75 mg/dL 0.72-1.25 07/14/2017 9:40am 07/14/2017 10:20am BUN/Creatinine Ratio 13 6-07/14/2017 9:40am 07/14/2017 10:20am Estimat Glomerular Filtration Rate > 60 ML/MIN 60- 07/14/2017 9:40am 10:20am Ranges were taken from the National Kidney Disease Education Program and the National Kidney Foundation literature. Reference ranges: 60 or greater: Normal 16-59 (for 3 consecutive months): Chronic kidney disease 15 or less: Kidney failure Glucose Level 122 mg/dL H 74-118 07/14/2017 9:40am 07/14/2017 10:20am Calcium Level 9.3 mg/dL 8.4-10.2 07/14/2017 9:40am 07/14/2017 10:20am Magnesium Level 1.6 MG/DL 1.3-2.1 07/12/2017 9:27am 07/12/2017 10:00am Total Bilirubin 0.6 mg/dL 0.2-1.2 07/14/2017 9:40am 07/14/2017 10:20am Aspartate Amino Transf (AST/SGOT) 23 IU/L 5-34 07/14/2017 9:40am 2017 10:20am Alanine Aminotransferase (ALT/SGPT) 75 IU/L H 0-55 07/14/2017 9:40am 10:20am Total Protein 6.3 g/dL L 6.5-8.1 07/14/2017 9:40am 07/14/2017 10:20am Albumin 2.6 g/dL L 3.5-5.0 07/14/2017 9:40am 07/14/2017 10:20am Globulin 3.7 g/dL H 2.3-3.5 07/14/2017 9:40am 07/14/2017 10:20am Albumin/Globulin Ratio 0.7 L 0.8-2.0 07/14/2017 9:40am 07/14/2017 10: 20am Alkaline Phosphatase 145 IU/L 40-150 07/14/2017 9:40am 07/14/2017 10: 20am B-Type Natriuretic Peptide 114.5 pg/mL H 0-100 07/12/2017 9:27am 2017 10:03am Creatine Kinase 54 IU/L 30-200 07/14/2017 9:40am 07/14/2017 10:20am Creatine Kinase MB 1.70 ng/mL 0-5.0 07/13/2017 2:00am 07/13/2017 3: 28am Troponin I 0.006 ng/mL 0-0.300 07/13/2017 2:00am 07/13/2017 3:28am Lipase 11 U/L 8-78 07/12/2017 9:27am 07/12/2017 10:00am C-Reactive Protein 191.7 mg/L H 0.0-4.9 07/12/2017 9:27am 07/13/2017 8: 37am Performed at: [facility] [id number] Managing Partner: Quan Cleveland MD, Phone: [phone] Microbiology Results Procedure Source Organism/Result Collection Date/Time Result Date/Time Result Status Blood Culture Blood NO GROWTH AFTER 72 HOURS 9:27am 07/15/2017 9:38am Preliminary Procedures Procedure Status Date Provider(s) Computed tomography of chest with contrast Active 07/12/17 CAPRICE WAGNER Encounters Encounter Location Arrival/Admit Date Discharge/Depart Date Attending Provider Discharged Inpatient [facility] Patients [facility] 07/12/17 12:02pm 1:30pm ABIDA CARNES MD Departed Emergency Room [facility] 07/05/17 9:27am 10:49am CAPRICE WAGNER
[2017-07-21 17:11] LABS: BASOPHILS # (AUTO) 0.1 (0.0-0.1); BASOPHILS % 0.5 % (0.0-1.0); EOSINOPHILS # (AUTO) 0.3 (0.0-0.4); EOSINOPHILS % 2.4 % (0.0-6.0); HEMATOCRIT 33.1 % (38.2-49.6); HEMOGLOBIN 11.1 g/dL (14.0-18.0); LYMPHOCYTES # (AUTO) 1.5 (1.0-3.2); LYMPHOCYTES % 14.8 % (18.0-39.1); MEAN CORPUSCULAR HEMOGLOBIN 27.5 pg (28-32); MEAN CORPUSCULAR HGB CONC 33.5 g/dL (31-35); MEAN CORPUSCULAR VOLUME 82.1 fL (81-99); MONOCYTES # (AUTO) 0.9 (0.2-0.8); MONOCYTES % 8.4 % (4.4-11.3); NEUTROPHILS # (AUTO) 7.5 (2.1-6.9); NEUTROPHILS % 72.5 % (38.7-80.0); PLATELET COUNT 291 x10e3/uL (140-360); RED BLOOD COUNT 4.03 x10e6/uL (4.3-5.7); RED CELL DISTRIBUTION WIDTH 14.3 % (11.7-14.4)
[2017-07-21] MEDS: SODIUM CHLORIDE 0.9% 1000ML 1,000 ML IV SCH ×2 (17:20→20:12)
[2017-07-21 17:47] LABS: INR 1.43; PROTHROMBIN TIME 16.4 seconds (11.9-14.5)
[2017-07-21 17:48] LABS: PARTIAL THROMBOPLASTIN TIME 31.5 seconds (23.8-35.5)
[2017-07-21 17:49] LABS: ALANINE AMINOTRANSFERASE 154 IU/L (0-55); ALBUMIN 2.7 g/dL (3.5-5.0); ALBUMIN/GLOBULIN RATIO 0.8 (0.8-2.0); ALKALINE PHOSPHATASE 234 IU/L (40-150); ANION GAP 11.1 mmol/L (8-16); BLOOD UREA NITROGEN 11 mg/dL (7-26); BUN/CREATININE RATIO 15 (6-25); CALCIUM 9.1 mg/dL (8.4-10.2); CARBON DIOXIDE 28 mmol/L (22-29); CHLORIDE 102 mmol/L (98-107); CREATINE KINASE 103 IU/L (30-200); CREATININE, SERUM 0.74 mg/dL (0.72-1.25); EST GLOMERULAR FILTRATION RATE > 60 ML/MIN (60-); GLUCOSE 146 mg/dL (74-118); POTASSIUM 4.1 mmol/L (3.5-5.1); SODIUM 137 mmol/L (136-145)
[2017-07-21 17:50] LABS: BILIRUBIN,URINE NEGATIVE (NEGATIVE); CLARITY,URINE CLEAR (CLEAR); KETONES,URINE NEGATIVE (NEGATIVE); LEUKOCYTE ESTERASE ,URINE NEGATIVE (NEGATIVE); NITRITE,URINE NEGATIVE (NEGATIVE); PROTEIN,URINE DIPSTICK NEGATIVE (NEGATIVE); URINE UROBILINOGEN 0.2 mg/dL (0.2 - 1)
[2017-07-21 17:52] LABS: COLOR,URINE STRAW (YELLOW)
--- NOTE | 2017-07-21 18:05 | Diagnostic Imaging Report ---
Examination: Single AP view of the chest. COMPARISON: Portable chest 07/13/2017, CT chest 07/12/2017 INDICATION: Chest pain IMPRESSION: 1. Lines and Tubes: None 2. Hypoinflated lungs. Obscuration of the left hemidiaphragm and blunting of the left lateral costophrenic sulcus, consistent with small pleural effusion and likely associated left lower lobe atelectasis. Rest of the lungs is grossly clear. 3. Enlarged cardiac silhouette. Pulmonary vasculature is normal. 4. No acute bony abnormalities. Signed by: Dr. Skyler Allen M.D. on 07/21/2017 6:01 PM
--- OUTSIDE RECORDS SUMMARY | 2017-07-21 18:18 | XMS REPORT | Clinical Summary ---
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
[2017-07-21] MEDS ORDERED: PROMETHAZINE HCL (IM) 25 MG/ML VIAL IV PRN (18:30)
[2017-07-21] MEDS ORDERED: MORPHINE SULFATE 2 MG/ML SYR IV PRN (18:30)
[2017-07-21] MEDS ORDERED: ASPIRIN 81 MG CHEW TAB PO ONE (18:30)
[2017-07-21] MEDS ORDERED: HYDROMORPHONE 1MG/1ML INJ IV PRN (18:30)
[2017-07-21] MEDS ORDERED: ONDANSETRON HCL INJ 2 MG/ML VIAL IV PRN (18:30)
--- NOTE | 2017-07-21 20:08 | Diagnostic Imaging Report ---
EXAM: CT CHEST W INDICATION: Chest pain, worse with inspiration COMPARISON: CT of the chest July 12, 2017 TECHNIQUE: Multidetector CT scanning of the chest was performed. Coronal and sagittal multiplanar reformations were obtained. PE protocol performed. IV Contrast: 100 cc Isovue-370 CTDIvol has been reviewed. It is below the limits set by the Radiation Protocol Committee (RPC). FINDINGS: LUNGS AND AIRWAYS: The trachea and major bronchi are unremarkable. No consolidations or edema. Bibasilar atelectasis and septal thickening. PLEURA: Trace bilateral pleural effusions. HEART, MEDIASTINUM, VESSELS: The heart is within normal size limits. Moderate pericardial effusion, similar to prior exam. No thoracic aortic aneurysm. Stable prominent mediastinal lymph nodes are likely reactive. No evidence of a pulmonary embolism. UPPER ABDOMEN: No acute finding. MUSCULOSKELETAL: No acute findings. IMPRESSION: No evidence of a pulmonary embolism. Moderate pericardial effusion, stable from prior exam. Signed by: Dr. Radha Hairston M.D. on 07/21/2017 8:04 PM
[2017-07-21] MEDS: FAMOTIDINE 20 MG TAB PO SCH (20:11)
[2017-07-21 20:45] VITALS: BP 149/73
[2017-07-21 20:48] VITALS: BP 149/73
[2017-07-21] MEDS: INDOMETHACIN 25 MG CAP PO SCH (21:13)
[2017-07-21 21:26] VITALS: BP 149/73
[2017-07-22] VITALS (8 sets, daily range): BP systolic 104–142; BP diastolic 54–76
--- NOTE | 2017-07-22 00:15 | History and Physical ---
CARDIOLOGY ADMISSION HISTORY AND PHYSICAL INDICATION: Chest pain. HISTORY OF PRESENT ILLNESS: Mr. Mendoza is 32-year-old gentleman with known history of viral pericarditis, who was recently discharged, but continues to have severe chest pain, worse on breathing. He came into the emergency room today with an echocardiogram that showed a small pericardial effusion. He continues to have severe pain, from which he is having difficulty in breathing. PAST MEDICAL HISTORY: Pericarditis. SOCIAL HISTORY: Patient does not smoke or drink. MEDICATIONS: Reviewed. ALLERGIES: NO KNOWN DRUG ALLERGIES. REVIEW OF SYSTEMS: Negative except as dictated in the history of present illness. PHYSICAL EXAMINATION: VITAL SIGNS: Temperature 99.7 degrees Fahrenheit, heart rate 116, respirations 22, blood pressure 145/87, O2 sat is 98%. CARDIOVASCULAR: Regular rhythm. Brief pericardial rub. No murmurs. LUNGS: Pleural friction rub is heard. Occasional rhonchi in both lung bases. ABDOMEN: Soft. EXTREMITIES: No edema. Pedal pulses 2+. LABORATORY DATA: WBC count 10.3, hemoglobin 11. Creatinine 0.7. Transaminases are mildly elevated, alkaline phosphatase 232, albumin is 2.7. BNP 27. Cardiac enzymes are negative. ASSESSMENT: Acute severe pericarditis. RECOMMENDATIONS: Pain control with NSAIDs as well as colchicine. Steroids will not be used at this point unless he has progressive pain to prevent recurrence. Infectious disease consult to consider other causes of pleural and pericarditis. [place] IV fluids. CT scan of the chest has been ordered, results are pending. Job#: [id number]
[2017-07-22] MEDS ORDERED: SODIUM CHLORIDE 0.9% 50ML 50 ML ONE (01:27)
[2017-07-22] MEDS ORDERED: IOPAMIDOL 370 MG/ML 200 ML INFUS..BTL INJ ONE (01:27)
[2017-07-22 02:39] LABS: CREATINE KINASE 74 IU/L (30-200)
[2017-07-22 03:44] LABS: ALANINE AMINOTRANSFERASE 144 IU/L (0-55); ALBUMIN 2.4 g/dL (3.5-5.0); ALBUMIN/GLOBULIN RATIO 0.7 (0.8-2.0); ALKALINE PHOSPHATASE 224 IU/L (40-150); ANION GAP 12.1 mmol/L (8-16); BLOOD UREA NITROGEN 8 mg/dL (7-26); BUN/CREATININE RATIO 12 (6-25); CARBON DIOXIDE 28 mmol/L (22-29); CHLORIDE 106 mmol/L (98-107); CHOLESTEROL 143 MD/DL (0-199); CREATININE, SERUM 0.68 mg/dL (0.72-1.25); EST GLOMERULAR FILTRATION RATE > 60 ML/MIN (60-); GLUCOSE 127 mg/dL (74-118); HDL CHOLESTEROL 24 MG/DL (40-60); LDL CHOLESTEROL 106 MG/DL (60-130); MAGNESIUM 1.9 MG/DL (1.3-2.1); PHOSPHORUS 3.2 MG/DL (2.3-4.7); POTASSIUM 4.1 mmol/L (3.5-5.1); SODIUM 142 mmol/L (136-145); TRIGLYCERIDES 66 MG/DL (0-149)
[2017-07-22] MEDS: SODIUM CHLORIDE 0.9% 1000ML 1,000 ML IV SCH ×5 (04:13→15:56)
[2017-07-22] MEDS: FAMOTIDINE 20 MG TAB PO SCH ×2 (06:33→17:22)
[2017-07-22] MEDS: INDOMETHACIN 25 MG CAP PO SCH ×3 (08:59→20:27)
[2017-07-22] MEDS ORDERED: COLCHICINE 0.6 MG TAB PO SCH (09:00)
[2017-07-22 11:21] LABS: CREATINE KINASE 80 IU/L (30-200)
--- NOTE | 2017-07-22 11:44 | Progress Note ---
DATE: CARDIOLOGY PROGRESS NOTE SUBJECTIVE: Patient reports some shortness of breath and chest pain especially with deep breaths, but otherwise he states that his pain and shortness of breath is quite improved from last night. CARDIOVASCULAR MEDICATIONS 1. Pepcid 20 mg p.o. q.12. 2. Colchicine 0.6 mg p.o. daily. 3. Indomethacin 50 mg p.o. t.i.d. OBJECTIVE: VITAL SIGNS: Temperature 97.5, pulse 87, respiratory rate 18, blood pressure 104/54, oxygen saturation 96% on room air. GENERAL: Alert and oriented x3, resting comfortably in bed. Does not appear to be in any acute distress. LUNGS: Clear to auscultation throughout. No wheezing. No rhonchi or crackles noted. CARDIOVASCULAR: Regular rate and rhythm. No murmurs. No gallops. No pericardial rub noted. ABDOMEN: Soft, nontender. EXTREMITIES: No edema, 2+ pedal pulses. LABS: WBC 10.31, hemoglobin 11.1, hematocrit 33.1, and platelets 291. Sodium 141, potassium 4.1, BUN 8, creatinine 0.68. GFR greater than 60. AST 65, ALT 144, alkaline phosphatase 224. LDL 106, total cholesterol 143, HDL 24. CT of the chest negative for pulmonary emboli, moderate pericardial effusion noted, stable from prior exam. TELEMETRY: Normal sinus rhythm. ASSESSMENT 1. Acute on chronic severe pericarditis. 2. Abnormal liver function test. RECOMMENDATIONS: Consulting GI for evaluation of abnormal liver function. Continue the above-listed cardiac medications. Pain control with NSAIDs as well as colchicine. Steroids will be used only if there is progression of pain to prevent recurrence of pericarditis. Infectious disease consulted to evaluate other causes of pericarditis. Maintain telemetry. Dictated By: Annika Ervin NP Job#: [id number] PAT
[2017-07-22] MEDS: KETOROLAC TROMETHAMINE 30 MG/ML VIAL IV PRN ×2 (12:40→22:45)
[2017-07-22 13:31] LABS: HIV 1&2 AB SCREEN NON-REACTIVE (NONREACTIVE)
--- NOTE | 2017-07-22 18:57 | Consultation ---
DATE OF CONSULTATION: July 22, 2017 INFECTIOUS DISEASE CONSULTATION REFERRING PHYSICIAN: Dr. Justin Devries. COVERING FOR: Dr. Fernandez. REASON FOR CONSULTATION: Viral pericarditis, free etiological diagnosis. HISTORY OF PRESENT ILLNESS: This is a 32-year-old male patient who was recently admitted to the hospital with community-acquired pneumonia and also treated for influenza and was diagnosed with viral pericarditis and was discharged. He was readmitted with chest pain, worsening breathing, and was started appropriately on NSAIDs and colchicine. We are asked to give final possible diagnosis. PAST MEDICAL HISTORY: None except recently diagnosis pericarditis. ALLERGIES: No known drug allergies. PERSONAL AND SOCIAL HISTORY: Does not smoke, drink, or use IV drugs. 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 He is , with 2 kids. The children have not been sick. The patient has no history of recent travel. He has been born and brought up in [place]. No exposures are noted except living near chemical plants. No sick contacts. REVIEW OF SYSTEMS: The 14-point review of systems positive for chest pain, shortness of breath, and fevers. Otherwise, all systems reviewed and are negative. PHYSICAL EXAMINATION GENERAL: A pleasant middle-aged, alert and disoriented, in no acute distress. VITALS: Temperature is 98.2, heart rate 77, respiratory rate 18, and blood pressure 142/65. HEENT: Pupils equally reactive to light and accommodation. NECK: No JVP or lymphadenopathy. Oral cavity with no thrush or ulcers seen. CHEST: Decreased breath sounds bibasilarly. No rhonchi or wheezing. CARDIOVASCULAR: S1 and S2 heard. No S3 or murmurs. ABDOMEN: Soft and nontender. Bowel sounds are present. EXTREMITIES: No pedal edema. Distal pulses are palpable. SKIN: No rashes or eczema. CENTRAL NERVOUS SYSTEM: Alert and oriented. No focal motor or sensory deficits. LABORATORY AND DIAGNOSTIC DATA: Include a white count of 16.26, up from 9.18 yesterday. His creatinine is 0.74. AST and ALT are elevated at 65 and 165; alkaline phosphatase of 234. Imaging studies include chest CT, which shows moderate pericardial effusion, bibasilar atelectasis, and trace bilateral pleural effusions. ASSESSMENT 1. Possible viral pericarditis. 2. Elevated liver function tests. 3. Leukocytosis, possibly reactive. 4. Pericardial effusion. 5. Transaminitis. RECOMMENDATIONS 1. Ultrasound of the liver. 2. Serology for viral and fungal pathogens including coxsackie virus, EBV, CMV, and HIV as well as screening for histoplasma coccidiomycosis. Also screening for hematological diseases including lupus with antinuclear antibody. 3. Ultrasound of the liver to evaluate the elevated liver functions tests with hepatitis profile. Thank you for involving us in the care of this patient. We will follow along with you. Dr. Fernandez to see the patient tomorrow. Job#: [id number] KAI
[2017-07-22] MEDS: COLCHICINE 0.6 MG TAB PO SCH (20:41)
[2017-07-22] MEDS ORDERED: INDOMETHACIN 25 MG CAP PO SCH (21:00)
[2017-07-23] VITALS: BP 114/58
[2017-07-23] MEDS: SODIUM CHLORIDE 0.9% 1000ML 1,000 ML IV SCH ×6 (00:30→18:33)
[2017-07-23 04:00] VITALS: BP 132/67
[2017-07-23] MEDS: FAMOTIDINE 20 MG TAB PO SCH ×2 (05:59→18:30)
[2017-07-23 08:15] VITALS: BP 137/62
[2017-07-23] MEDS: INDOMETHACIN 25 MG CAP PO SCH ×3 (08:44→23:38)
[2017-07-23] MEDS: COLCHICINE 0.6 MG TAB PO SCH ×2 (08:44→16:49)
[2017-07-23] MEDS ORDERED: INDOMETHACIN 25 MG CAP PO SCH (09:00)
--- NOTE | 2017-07-23 11:37 | Diagnostic Imaging Report ---
PROCEDURE:US GALLBLADDER COMPARISON:CT chest with contrast 07/21/2017. INDICATIONS:Elevated liver function tests TECHNIQUE: Eaton-scale and color doppler transverse and longitudinal images of the right upper quadrant of the abdomen were obtained. FINDINGS: Liver: 16 cm in length in the right mid-clavicular line. Normal parenchymal echogenicity . No masses. Main portal vein: One cm in caliber. Patent with expected hepatopedal flow. Gallbladder: Gallbladder wall at the upper limits of normal in thickness, measuring 3-4 mm. No shadowing calculus or pericholecystic fluid. Common Bile Duct: 0.3 cm in caliber. Sonographic Alfredo's sign: Reported as negative. Right kidney: 11.5 cm in length. Normal renal cortical echogenicity. No solid masses or hydronephrosis. Pancreas: The visualized portions are unremarkable. Inferior vena cava: Patent Aorta: Non-aneurysmal Ascites: None in the right upper quadrant of the abdomen. CONCLUSION: No cholelithiasis or sonographic evidence of acute cholecystitis. Unremarkable sonographic appearance of the liver. Dictated by: Norberto Correa M.D. on 07/23/2017 at 11:36 Electronically approved by: Norberto Correa M.D. on 07/23/2017 at 11:36
[2017-07-23 12:00] VITALS: BP 142/99
[2017-07-23 16:20] VITALS: BP 141/75
[2017-07-23 20:00] VITALS: BP 136/68
[2017-07-23] MEDS: KETOROLAC TROMETHAMINE 30 MG/ML VIAL IV PRN (23:39)
[2017-07-24] VITALS: BP 136/68
--- NOTE | 2017-07-24 00:07 | Progress Note ---
DATE: July 23, 2017 CARDIOLOGY PROGRESS NOTE SUBJECTIVE: The patient reports his chest pain is improved. He, however, continues to have chest pain with deep inspiration. He denies any shortness of breath. OBJECTIVE VITALS: Temperature 98.9 degrees, pulse 94, respiratory rate 18, blood pressure 141/75, oxygen saturation 98% on room air. GENERAL: Awake, alert, in no acute distress. LUNGS: Clear to auscultation bilaterally. No wheezes or crackles. CARDIOVASCULAR: Normal rate. Regular rhythm. No murmur. Normal S1 and S2. ABDOMEN: Soft, nontender. EXTREMITIES: No edema. CARDIAC MEDICATIONS 1. Colchicine 0.6 mg p.o. b.i.d. 2. Indomethacin 50 mg p.o. t.i.d. LABS: None today. ULTRASOUND: Right upper quadrant ultrasound, no cholelithiasis or sonographic evidence of acute cholecystitis. Unremarkable sonographic appearance of the liver. TELEMETRY: Normal sinus rhythm. IMPRESSIONS 1. Cuxxn-[id number] pericarditis, suspect viral. 2. Abnormal liver function tests. 3. Pericardial effusion. 4. Gastrointestinal consulted for evaluation of liver function tests. RECOMMENDATIONS: Appreciate infectious disease assistance with evaluation of pericarditis. No etiologies identified thus far. Continue current cardiac medication. Pain control with NSAIDs and colchicine. Will hold off on steroids as patient is improving. If pain continues to recur or worsen, may need steroids with prolonged taper at that point. Continue monitoring on telemetry. Thank you for this consult. We will continue to follow. Job#: [id number]
--- NOTE | 2017-07-24 00:28 | History and Physical ---
No Dictation, 29 minutes 51 seconds Job#: [id number]
[2017-07-24 03:26] VITALS: BP 114/56
[2017-07-24 04:00] VITALS: BP 140/66
[2017-07-24] MEDS: SODIUM CHLORIDE 0.9% 1000ML 1,000 ML IV SCH ×2 (06:30→16:30)
[2017-07-24] MEDS: FAMOTIDINE 20 MG TAB PO SCH ×2 (07:30→18:39)
[2017-07-24 07:40] LABS: ALANINE AMINOTRANSFERASE 107 IU/L (0-55); ALBUMIN 2.4 g/dL (3.5-5.0); ALBUMIN/GLOBULIN RATIO 0.7 (0.8-2.0); ALKALINE PHOSPHATASE 213 IU/L (40-150); ANION GAP 10.9 mmol/L (8-16); BLOOD UREA NITROGEN 10 mg/dL (7-26); BUN/CREATININE RATIO 14 (6-25); CARBON DIOXIDE 29 mmol/L (22-29); CHLORIDE 105 mmol/L (98-107); CREATININE, SERUM 0.71 mg/dL (0.72-1.25); EST GLOMERULAR FILTRATION RATE > 60 ML/MIN (60-); GLUCOSE 103 mg/dL (74-118); POTASSIUM 3.9 mmol/L (3.5-5.1); SODIUM 141 mmol/L (136-145)
[2017-07-24 08:27] VITALS: BP 138/65
[2017-07-24] MEDS: COLCHICINE 0.6 MG TAB PO SCH ×2 (09:00→16:43)
[2017-07-24] MEDS: INDOMETHACIN 25 MG CAP PO SCH ×2 (09:00→15:00)
[2017-07-24 12:22] VITALS: BP 133/71
[2017-07-24 18:29] VITALS: BP 131/67
--- NOTE | 2017-07-24 18:33 | Progress Note ---
DATE: July 24, 2017 CARDIOLOGY PROGRESS NOTE SUBJECTIVE: Patient denies chest pain or shortness of breath. OBJECTIVE VITALS: Temperature 97.4 degrees, pulse 60, respiratory rate 18, blood pressure 138/65. Oxygen saturation 99% on room air. GENERAL: Awake, alert, in no acute distress. LUNGS: Clear to auscultation bilaterally. No wheezes or crackles. CARDIOVASCULAR: Normal rate. Regular rhythm. No murmur. Normal S1 and S2. ABDOMEN: Soft, nontender. EXTREMITIES: No edema. CARDIAC MEDICATIONS 1. Colchicine 0.6 mg p.o. b.i.d. 2. Indomethacin 50 mg p.o. t.i.d. LABS: WBC 10.31, hemoglobin 11.1, hematocrit 33.1, platelets 291. Sodium 141, potassium 3.9, chloride 105, CO2 29, BUN 10, creatinine 0.71. TELEMETRY: Normal sinus rhythm. IMPRESSION 1. Yqxzn-ju-moqtymq pericarditis, suspect viral etiology. 2. Abnormal liver function tests. 3. Pericardial effusion. RECOMMENDATIONS: Appreciate GI's assistance with evaluation of elevated LFTs. Infectious disease is evaluating possible etiologies for pericarditis. No etiologies identified thus far. Continue current cardiac medications. Pain control with NSAIDs and colchicine. Defer steroids as patient is improving. If pain continues to recur or worsen, may need steroids with prolonged taper at that point. As the patient is improved, discharge home if cleared by consultants. Thank you for this consult. We will continue to follow. Job#: [id number]
== END 2017-07-24 18:51 | disposition home or self-care (01) | DRG 316 ==
LOC: ER 15:54 → ERHOLD 18:15 → MED/SURG 19:15 → MED/SURG2 07-24 13:38
PROVIDERS: ADMIT Internal Medicine Interventional Cardiology; ATTEND Internal Medicine Interventional Cardiology
DX: I30.1 Infective pericarditis (principal); R74.0 Nonspecific elevation of levels of transaminase and lactic acid dehydrogenase [LDH]
CPT/HCPCS: 36415; 71045; 71260; 76705; 80053; 80061; 81001; 82550; 82553; 83735; 83880; 84100; 84484; 85025; 85610; 85651; 85730; 86039; 86140; 86635; 86644; 86645; 86663; 86664; 86665; 86698; 87040; 87340; 87390; 93005; 93306; 99284; G0433; G0435; J1885; J7030; Q9967

== ENCOUNTER 2018-03-05 11:14 | Emergency (ER) | payer BC ==
[~2018-03-05] VITALS: Ht 177.8 cm; Wt 83.9 kg
--- OUTSIDE RECORDS SUMMARY | 2018-03-05 11:16 | XMS REPORT | Clinical Summary ---
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 Family History Relation Name Status Comments Father Alive Mother Alive Social History Tobacco Use Types Packs/Day Years Used Date Never Smoker Smokeless Tobacco: Never Used Alcohol Use Drinks/Week oz/Week Comments Yes Sex Assigned at Date Recorded Not on file Last Filed Vital Signs Vital Sign Reading Time Taken Blood Pressure 142/87 03/30/2017 9:38 AM [employer] Pulse 97 03/30/2017 9:38 AM [employer] Temperature - - Respiratory Rate - - Oxygen Saturation - - Inhaled Oxygen - - Concentration Weight 87.5 kg (193 lb) 03/30/2017 9:38 AM [employer] Height 175.3 cm (5' 9") 03/30/2017 9:38 AM [employer] Body Mass Index 28.5 03/30/2017 9:38 AM [employer] Plan of Treatment Health Maintenance Due Date Last Done Comments INFLUENZA VACCINE 11/28/2017 Results Not on fileafter 03/04/2017 Insurance Payer Benefit Subscriber ID Type Phone Address Plan / Group BCBS BCBS xxxxxxxxxxxx PPO MER[employer] PPO/GIORGIO REDDY PPO
[2018-03-05] MEDS ORDERED: LIDOCAINE VISC 2% SOLN 15 ML UDC PO ONE (11:45)
[2018-03-05] MEDS ORDERED: LIDOCAINE 1% W/EPINEPHRINE 20 ML VIAL INJ ONE (12:00)
[2018-03-05] MEDS ORDERED: CIPROFLOXACIN 500 MG TAB PO ONE (12:15)
[2018-03-05] MEDS ORDERED: METRONIDAZOLE 500 MG TAB PO ONE (12:15)
[2018-03-05] MEDS ORDERED: KETOROLAC TROMETHAMINE 10 MG TAB PO ONE (12:15)
[2018-03-05 13:12] VITALS: BP 124/89
== END 2018-03-05 12:55 | disposition home or self-care (01) ==
LOC: ER 11:14
DX: K62.89 Other specified diseases of anus and rectum (principal); K61.1 Rectal abscess
CPT/HCPCS: 87071; 87186; 87205; 99283